=== PATIENT | female | born 1980 ===

== ENCOUNTER 2019-01-19 07:11 | Emergency (ER) | payer BC, OTHER ==
[2019-01-19 07:29] VITALS: BP 177/106
--- NOTE | 2019-01-19 07:44 | UC ---
Dental HPI - HPI Summary HPI Summary: Awoke at 2 am with pain in the left lower jaw, following a day of awareness of some ear discomfort and ache in the jaw. Is pending extraction of 3 lower molars , but has not been able to take time off for the procedure. - History of Current Complaint Chief Complaint: UCDentalProblem Stated Complaint: DENTAL PAIN Time Seen by Provider: 01/19/19 07:33 Hx Obtained From: Patient Hx Last Menstrual Period: 01/07/19 Onset/Duration: Gradual Onset, Lasting Hours Pain Intensity: 8 Aggravating Factor(s): Chewing Alleviating Factor(s): OTC Meds Related History: Previous Dental Care on Same Tooth - Allergies/Home Medications Allergies/Adverse Reactions: Allergies Allergy/AdvReac Type Severity Reaction Status Date / Time Penicillins Allergy GI Upset Verified 01/19/19 07:29 Home Medications: Home Medications Ibuprofen 200 mg PO DAILY 01/19/19 [History Confirmed 01/19/19] Naproxen Sodium [Aleve] 1 tab PO DAILY PRN 01/19/19 [History Confirmed 01/19/19] guaiFENesin [Mucinex] 1,200 mg PO DAILY 01/19/19 [History Confirmed 01/19/19] PMH/Surg Hx/FS Hx/Imm Hx Previously Healthy: Yes - chronic low back pain - Surgical History Surgical History: Yes Surgery Procedure, Year, and Place: molars extracted - Family History Known Family History: Positive: Cardiac Disease - paternal side with aneurysms ? aorta, Other - maternal side with breast cancer - Social History Occupation: Employed Full-time Lives: With Family Alcohol Use: None Substance Use Type: None Smoking Status (MU): Current Every Day Smoker Amount Used/How Often: 5 cig/day Have You Smoked in the Last Year: Yes Household Exposure Type: Cigarettes Review of Systems All Other Systems Reviewed And Are Negative: Yes Constitutional: Positive: Negative Eyes: Negative: Blurred Vision, Photophobia ENT: Positive: Dental Pain, Ear Ache Cardiovascular: Positive: Other - Marked elevation of BP here today; states normal at the pharmacy and MD visits. Has no visual blurring, dizziness, chest pain or headache. Musculoskeletal: Positive: Arthralgia - off an on low back pain. Is Patient Immunocompromised?: No Physical Exam Triage Information Reviewed: Yes Appearance: Well-Appearing, Pain Distress - moderate Vital Signs: Initial Vital Signs Temp 98.3 F 01/19/19 07:22 Pulse 88 01/19/19 07:22 Resp 19 01/19/19 07:22 BP 177/106 01/19/19 07:22 Pulse Ox 100 01/19/19 07:22 Eyes: Positive: Conjunctiva Clear ENT: Positive: Pharynx normal Dental: Positive: Percussion Tenderness @, Gross Decay/Caries @ Neck: Positive: Supple, Nontender, Enlarged Nodes @ - left mandibular node large about 3 cm and tender Respiratory: Positive: Lungs clear, Normal breath sounds Cardiovascular: Positive: RRR, No Murmur Musculoskeletal Exam: Normal Neurological Exam: Normal Neurological: Positive: Alert Psychological Exam: Normal Skin Exam: Normal Images Dental: 1 - fractured tooth Dental Complaint Course/Dx - Course Course Of Treatment: clindamycin for treatment of infection; increase ibuprofen and add acetaminophen Recheck BP within 2 days with PMD - Differential Dx/Diagnosis Differential Diagnosis/Dx: Dental Abscess, Dental Caries, Fractured Tooth, TMJ Syndrome Provider Diagnosis: Dental abscess Discharge ED - Sign-Out/Discharge Documenting (check all that apply): Patient Departure All imaging exams completed and their final reports reviewed: No Studies - Discharge Plan Condition: Stable Disposition: HOME Prescriptions: Clindamycin Cap(NF) [Clindamycin Cap 300 mg Cap(NF)] 300 mg PO QID #28 cap Patient Education Materials: Dental Abscess (ED) Referrals: Rina Richardson MD [Primary Care Provider] - Additional Instructions: Begin clindamycin for treatment of dental infection Increase ibuprofen to 600mg 4 times daily and add acetaminophen 650mg 4 times daily to treat pain. Both can be taken at the same time. Follow up with [facility] this week, and arrange a recheck of your blood pressure this week. Today's blood pressure was elevated to 177/106. - Billing Disposition and Condition Condition: STABLE Disposition: Home
== END 2019-01-19 08:10 | disposition home or self-care (01) ==
LOC: UCEAST 07:11
DX: K04.7 Periapical abscess without sinus (principal); F17.210 Nicotine dependence, cigarettes, uncomplicated; Z88.0 Allergy status to penicillin
CPT/HCPCS: 99202; G0463